=== PATIENT | female | born 1965 ===

== ENCOUNTER 2019-07-26 10:08 | Outpatient (CLI) | payer OTHER ==
[~2019-07-26 10:08] MED LIST: OMEPRAZOLE40 MG PO; ZANTAC300 MG PO; ZYRTEC10 MG PO
== END 2019-07-26 10:14 | disposition home or self-care (01) ==
LOC: SONOGRAMA 10:08 → MAMO-SONO 10:15
DX: N84.0 Polyp of corpus uteri (principal)